=== PATIENT | female | born 1975 | race Two or more races ===

== ENCOUNTER → 2019-03-21 18:27 | Outpatient (CLI) | payer BC, SELFPAY ==
[2019-03-25 13:33] LABS: HPV APTIMA, High Risk Negative (Negative)
== END ==
PROVIDERS: Referring Provider Obstetrics & Gynecology; Visit Provider Obstetrics & Gynecology
DX: Z12.4 Encounter for screening for malignant neoplasm of cervix (principal)
CPT/HCPCS: 87624; 88175; G0145

== ENCOUNTER 2021-04-12 15:50 | Outpatient (CLI) | payer BC, SELFPAY ==
[2021-04-18 14:58] LABS: HPV APTIMA, High Risk Negative (Negative)
== END 2021-04-12 23:59 | disposition short-term general hospital (02) ==
LOC: LABSPEC 15:51
PROVIDERS: Visit Provider Obstetrics & Gynecology
DX: Z12.4 Encounter for screening for malignant neoplasm of cervix (principal)
CPT/HCPCS: 87624; 88175; G0145

== ENCOUNTER 2021-05-08 14:14 | Outpatient (CLI) | payer BC, SELFPAY ==
--- NOTE | 2021-05-08 | EMB_PTH ---
PATIENT: JAIMEE BARNHART LOC: [facility] U#:[id number] AGE/SX: 45/F ROOM: RE05/08/[address]: Dr. Selma Carroll MD : 1975 BED: DIS: 05/08/2021 SPEC #: [id number] RECD: 05/08/21 17:00 STATUS: DAVID YUNIER #: [id number] ISAIAH: 05/08/21 00:[address]: Selma Haro DEPT: SURGICAL PATHOLOGY RECD BY: Avelino Vasquez Tissues: Endometrium, NOS Procedures: Surgery Specimen Level IV HEADER OPERATION: Endometrial biopsy PRE-OP DIAGNOSIS: Irregular bleeding TISSUE SUBMITTED: Endometrial biopsy MICROSCOPIC DIAGNOSIS Endometrial biopsy: Weakly secretory endometrium with glandular and stromal breakdown. BIJU:madelyn 05/10/2021 MICROSCOPIC DESCRIPTION Slides are reviewed. GROSS DESCRIPTION Received is one container labeled with the patient's name and not further designated. The specimen consists of multiple fragments of hemorrhagic soft tissue that in aggregate measure 2 x 1 x 0.2 cm. The specimen is totally submitted in one cassette. / BIJU:madelyn 05/09/2021 TC:5 CPT: 82203
== END 2021-05-08 23:59 | disposition home or self-care (01) ==
LOC: LABSPEC 14:17
PROVIDERS: Visit Provider Obstetrics & Gynecology
DX: N92.6 Irregular menstruation, unspecified (principal)
CPT/HCPCS: 88305